=== PATIENT | female | born 1980 | race Hispanic/Latino ===

== ENCOUNTER 2022-10-29 09:15 | Emergency (ER) | payer OTHER, SELFPAY ==
[2022-10-29] VITALS (24 sets, daily range): BP systolic 133–193; BP diastolic 69–117; PULSE 67–91; RESP 16; TEMP 36.5; O2SAT 98–100; BMI 27.4
--- NOTE | 2022-10-29 09:18 | ED.GENADULT ---
HPI - General Adult <Yonatan Hong DO - Last Filed: 10/30/22 07:17> General Chief complaint: Back Pain/Injury Stated complaint: stiff neck and shoulders Time Seen by Provider: 10/29/22 09:18 History of Present Illness HPI narrative: 42-year-old female former smoker with history of diabetes and chronic migraines presents with a chief complaint of stiff neck and shoulders. She states she is been having this trouble for quite some time and has been taking [id number] Tylenol, anti-inflammatories and a prescription of tizanidine which does not seem to be helping. She denies any trauma or injury. She is had no fever or chills and takes no blood thinners. She denies any headaches, blurred vision or trouble with speech. She states that she does occasionally get numbness and tingling in her left hand and feels like it is heavy, not currently. She states that her pain is worse when she moves her head [address] or the other. She denies any midline pain. She has no chest pain or shortness of breath. She denies any sore throat or difficulty swallowing. Related Data Home Medications Medication Instructions Recorded Confirmed hydroxyzine HCl 25 mg tablet 25 mg PO DAILY 03/04/19 03/04/19 metformin 1,000 mg tablet 750 mg PO DAILY 03/04/19 03/04/19 paroxetine HCl 10 mg tablet 10 mg PO DAILY 03/04/19 03/04/19 paroxetine HCl 40 mg tablet 40 mg PO DAILY 03/04/19 03/04/19 rizatriptan 5 mg tablet 5 mg PO ONCE 03/04/19 03/04/19 telmisartan 80 1 tab PO DAILY 03/04/19 03/04/19 mg-hydrochlorothiazide 25 mg tablet (Micardis HCT) Previous Rx's Medication Instructions Recorded rizatriptan 10 mg tablet (Maxalt) See Rx Instructions PO .COMPLEX 04/09/19 #10 tabs galcanezumab-gnlm 120 mg/mL 240 mg (2 mL) SUBCUT ONCE #1 mL 04/23/19 subcutaneous syringe (Emgality) verapamil 120 mg tablet,extended 120 mg PO DAILY #90 tabs 09/13/19 release gabapentin 300 mg capsule 300 mg PO BEDTIME #14 caps 10/29/22 hydrocodone 5 mg-acetaminophen 325 1 tab PO Q4-6H PRN pain #10 tabs 10/29/22 mg tablet methylprednisolone 4 mg tablets in See Rx Instructions PO .COMPLEX 10/29/22 a dose pack (Medrol (Arslan)) #21 ea Allergies Allergy/AdvReac Type Severity Reaction Status Date / Time No Known Drug Allergies Allergy Verified 10/29/22 09:35 Review of Systems <Yonatan Hong DO - Last Filed: 10/30/22 07:17> Review of Systems Narrative: GENERAL: Denies chills, fatigue, malaise, fever, sweats. HEENT: Denies sinus pain, ear pain, sore throat, difficulty swallowing, dizziness. RESPIRATORY: Denies dyspnea, cough, wheezing, hemoptysis, sputum. CARDIOVASCULAR: Denies chest pain, palpitations, orthopnea, edema, GASTROINTESTINAL: Denies nausea, vomiting, abdominal pain, diarrhea, constipation, melena. : Denies dysuria, frequency, incontinence, hematuria, urinary retention. MUSCULOSKELETAL: See HPI SKIN: Denies rash, skin lesions, or other NEUROLOGIC: See HPI PSYCHIATRIC: No concerning psychosocial issues. 12 point review of systems is negative except for those stated above Patient History <Yonatan Hong DO - Last Filed: 10/30/22 07:17> Surgical History History of History of cholecystectomy History of hysterectomy History of lithotripsy Family History Father Developmental delay Diabetes mellitus Respiratory disease Mother Hypertension Mental disability Migraines Social History marital status: Smoking Status: Former smoker alcohol intake: current Smoking Status: Former smoker Exam <Yonatan Hong DO - Last Filed: 10/30/22 07:17> Narrative Exam Narrative: GENERAL: [42] year old patient appears stated age. Well-developed patient, tearful, obviously uncomfortable HEAD: Atraumatic. Normocephalic. EYES: Pupils equal round and reactive. Extraocular motions intact. No scleral icterus. No injection or drainage. ENT: Nose without bleeding, purulent drainage. Throat without erythema, tonsillar hypertrophy or exudate. Airway patent. NECK: Trachea midline. No midline bony tenderness, step-offs or crepitance, no change in symptoms with axial load. No measurable upper extremity numbness, tingling or weakness. She does have pain in the paraspinal musculature with palpation or attempts at active range of motion CARDIOVASCULAR: Regular rate and rhythm without murmurs, gallops, or rubs. RESPIRATORY: Clear to auscultation. Breath sounds equal bilaterally. No wheezes, rales, or rhonchi. GASTROINTESTINAL: Abdomen soft, non-tender, nondistended. EXTREMITIES: No edema or joint tenderness. BACK: Nontender without deformity or crepitance. No flank tenderness. NEURO: AOx3. SKIN: No rash or erythema of visible areas Initial Vital Signs Initial Vital Signs: Vital Signs Pulse Rate 74 10/29/22 09:28 Blood Pressure 183/97 H 10/29/22 09:28 Pulse Oximetry 98 10/29/22 09:28 <Oziel Freeman DO - Last Filed: 10/29/22 19:39> Initial Vital Signs Initial Vital Signs: Vital Signs Pulse Rate 74 10/29/22 09:28 Blood Pressure 183/97 H 10/29/22 09:28 Pulse Oximetry 98 10/29/22 09:28 Course <Yonatan Hong, DO - Last Filed: 10/30/22 07:17> Orders Ordered: Discontinued Medications Hydrocodone Bitart/Acetaminophen (Hydrocodone/Acet 5/325 Tablet) 1 tab PO NOW ONE Stop: 10/29/22 12:10 Last Admin: 10/29/22 12:21 Dose: 1 tab Documented By: AT Hydrocodone Bitart/Acetaminophen (Hydrocodone/Acet 5/325 Prepack) 1 bottle [facility] ONE Stop: 10/29/22 19:22 Last Admin: 10/29/22 19:27 Dose: 1 bottle Documented By: SB Diazepam (Diazepam 2 Mg Tablet) 2 mg PO NOW ONE Stop: 10/29/22 09:36 Last Admin: 10/29/22 09:41 Dose: 2 mg Documented By: AT Diazepam (Diazepam 2 Mg Tablet) 2 mg PO NOW ONE Stop: 10/29/22 14:10 Last Admin: 10/29/22 14:13 Dose: 2 mg Documented By: RB Gabapentin (Gabapentin 300 Mg Capsule) 300 mg PO NOW ONE Stop: 10/29/22 19:14 Last Admin: 10/29/22 19:23 Dose: 300 mg Documented By: SB Ketorolac Tromethamine (Ketorolac 30 Mg/Ml Vial) 30 mg IM NOW ONE Stop: 10/29/22 09:37 Last Admin: 10/29/22 09:41 Dose: 30 mg Documented By: AT Prednisone (Prednisone 20 Mg Tablet) 40 mg PO NOW ONE Stop: 10/29/22 19:14 Last Admin: 10/29/22 19:23 Dose: 40 mg Documented By: SB Consultations Consultation #1: Discussed MRI findings with on-call orthopedist, Dr. Rivera, he agrees there is no indication for neurosurgical intervention or immediate consultation, recommend symptomatic treatment, encouragement to follow with orthopedic office. Vital Signs Vital signs: Vital Signs - 8 hr 10/29/22 12:00 10/29/22 12:00 10/29/22 12:30 Pulse Rate 71 68 Blood Pressure 142/83 H Pulse Oximetry 100 100 Oxygen Delivery Method 10/29/22 13:00 10/29/22 13:00 10/29/22 13:30 Pulse Rate 73 80 Blood Pressure 145/80 H Pulse Oximetry 100 100 Oxygen Delivery Method Room Air 10/29/22 14:00 10/29/22 14:00 10/29/22 14:30 Pulse Rate 72 83 Blood Pressure 135/75 Pulse Oximetry 99 99 Oxygen Delivery Method 10/29/22 15:27 10/29/22 15:28 10/29/22 15:28 Pulse Rate 91 H 76 Blood Pressure 140/84 Pulse Oximetry 100 100 Oxygen Delivery Method 10/29/22 15:30 10/29/22 16:00 10/29/22 16:00 Pulse Rate 70 70 Blood Pressure 135/76 Pulse Oximetry 100 100 Oxygen Delivery Method 10/29/22 16:30 10/29/22 17:00 10/29/22 17:00 Pulse Rate 67 70 Blood Pressure 139/84 Pulse Oximetry 99 100 Oxygen Delivery Method 10/29/22 17:30 10/29/22 18:00 10/29/22 18:00 Pulse Rate 82 76 Blood Pressure 133/69 Pulse Oximetry 98 99 Oxygen Delivery Method 10/29/22 19:25 10/29/22 19:25 Pulse Rate 75 Blood Pressure 136/91 H Pulse Oximetry 99 Oxygen Delivery Method Room Air <Oziel Freeman DO - Last Filed: 10/29/22 19:39> Orders Ordered: Discontinued Medications Hydrocodone Bitart/Acetaminophen (Hydrocodone/Acet 5/325 Tablet) 1 tab PO NOW ONE Stop: 10/29/22 12:10 Last Admin: 10/29/22 12:21 Dose: 1 tab Documented By: AT Hydrocodone Bitart/Acetaminophen (Hydrocodone/Acet 5/325 Prepack) 1 bottle [facility] SEEINSTR ONE Stop: 10/29/22 19:22 Last Admin: 10/29/22 19:27 Dose: 1 bottle Documented By: SB Diazepam (Diazepam 2 Mg Tablet) 2 mg PO NOW ONE Stop: 10/29/22 09:36 Last Admin: 10/29/22 09:41 Dose: 2 mg Documented By: AT Diazepam (Diazepam 2 Mg Tablet) 2 mg PO NOW ONE Stop: 10/29/22 14:10 Last Admin: 10/29/22 14:13 Dose: 2 mg Documented By: RB Gabapentin (Gabapentin 300 Mg Capsule) 300 mg PO NOW ONE Stop: 10/29/22 19:14 Last Admin: 10/29/22 19:23 Dose: 300 mg Documented By: SB Ketorolac Tromethamine (Ketorolac 30 Mg/Ml Vial) 30 mg IM NOW ONE Stop: 10/29/22 09:37 Last Admin: 10/29/22 09:41 Dose: 30 mg Documented By: AT Prednisone (Prednisone 20 Mg Tablet) 40 mg PO NOW ONE Stop: 10/29/22 19:14 Last Admin: 10/29/22 19:23 Dose: 40 mg Documented By: SB Vital Signs Vital signs: Vital Signs - 8 hr 10/29/22 12:00 10/29/22 12:00 10/29/22 12:30 Pulse Rate 71 68 Blood Pressure 142/83 H Pulse Oximetry 100 100 Oxygen Delivery Method 10/29/22 13:00 10/29/22 13:00 10/29/22 13:30 Pulse Rate 73 80 Blood Pressure 145/80 H Pulse Oximetry 100 100 Oxygen Delivery Method Room Air 10/29/22 14:00 10/29/22 14:00 10/29/22 14:30 Pulse Rate 72 83 Blood Pressure 135/75 Pulse Oximetry 99 99 Oxygen Delivery Method 10/29/22 15:27 10/29/22 15:28 10/29/22 15:28 Pulse Rate 91 H 76 Blood Pressure 140/84 Pulse Oximetry 100 100 Oxygen Delivery Method 10/29/22 15:30 10/29/22 16:00 10/29/22 16:00 Pulse Rate 70 70 Blood Pressure 135/76 Pulse Oximetry 100 100 Oxygen Delivery Method 10/29/22 16:30 10/29/22 17:00 10/29/22 17:00 Pulse Rate 67 70 Blood Pressure 139/84 Pulse Oximetry 99 100 Oxygen Delivery Method 10/29/22 17:30 10/29/22 18:00 10/29/22 18:00 Pulse Rate 82 76 Blood Pressure 133/69 Pulse Oximetry 98 99 Oxygen Delivery Method 10/29/22 19:25 10/29/22 19:25 Pulse Rate 75 Blood Pressure 136/91 H Pulse Oximetry 99 Oxygen Delivery Method Room Air Medical Decision Making <Yonatan Hong, DO - Last Filed: 10/30/22 07:17> MDM Narrative Medical decision making narrative: CC: 42-year-old female with muscular neck pain Complicating co-morbidities: Hypertension, migraines, chronic neck pain Data collected from: Patient Medical records reviewed: Prior notes reviewed in our EMR Differential considered, but not limited to: Muscle spasm, radicular symptoms due to disc problem, much less likely meningitis versus other Exam documented above, pertinent findings include: No midline bony tenderness, crepitance, no change with axial load, no measurable upper extremity weakness. Negative Kernig's sign. A&O x3. Imaging studies independently reviewed: MRI notes disc involvement but no evidence of neurosurgical emergency Consultations: On-call orthopedist see details above Treatments: Valium, hydrocodone, gabapentin, steroids Re-evaluations: Improved symptoms, pain controlled Discussion: Patient with worsening neck pain in the absence of high-risk features such as fever, trauma, use of blood thinners or extremity weakness. Exam and history are very reassuring. MRI obtained given the report of occasional tingling in her left hand findings noted above. Patient did well with medications given, added opioids, steroids and gabapentin to her regimen, encouraged close follow-up with orthopedist Disposition: see below, along with detailed discharge instructions that have been reviewed with patient as well as indications for ED re-evaluation and additional outpatient follow up Discharge Plan Departure Patient Disposition: Home Clinical Impression: Cervical radiculopathy at C6 Instructions: DI for Cervical Radiculopathy Activity Restrictions/Additional Instructions: *You have been diagnosed with [neck pain with C6 disc protrusion] *What to do: *Please continue to take your regular medications as directed. [ x] New medication prescriptions sent to your pharmacy: [ [facility]] [ ] New medication written as a paper prescription [ ] No new medications given *Please follow Dr. Rivera at [facility], please see the contact info listed below. Call the office tomorrow, let them know you were seen in the emergency department and we would like you seen in follow-up *If you do not have a primary care provider please contact the [facility] Resource line at [phone]. They will ask some questions about your medical history and help get you set up with a doctor in the community. *Return to Emergency Department if you should have any new, worsening or concerning symptoms, such as [fever greater than 101 F, shaking chills, worsening pain, persistent vomiting or other bothersome symptoms] You have been prescribed a short course of narcotic medications. These are potentially dangerous and addictive medications that should be used carefully. While on these medications you cannot drive or operate heavy machinery. Additionally, you cannot sign legal documents or perform any duties such as this. Many people get constipated on narcotic medications so it would be advisable to discuss stool softeners with the pharmacist when you greens picker your prescription. Please understand that we cannot provide further refills of narcotics or controlled substances through the ED and your pain management will need to be through your Primary Care Provider Prescriptions: New hydrocodone-acetaminophen 5-325 mg tablet 1 tab PO Q4-6H PRN (Reason: pain) Qty: 10 0RF gabapentin 300 mg capsule 300 mg PO BEDTIME Qty: 14 0RF methylprednisolone [Medrol (Arslan)] 4 mg tablets,dose pack See Rx Instructions .ROUTE .COMPLEX Qty: 21 0RF Rx Instructions: orally per package directions No Action rizatriptan [Maxalt] 10 mg tablet See Rx Instructions PO .COMPLEX Qty: 10 2RF Dose Instruction: take 1 tab at onset of headache; if no relief may repeat 1 tab in 2hr; max = 3 tabs/day (24hr) PO Rx Instructions: take 1 tab at onset of headache; if no relief may repeat 1 tab in 2hr; max = 3 tabs/day (24hr) PO verapamil 120 mg tablet extended release 120 mg PO DAILY Qty: 90 1RF Rx Instructions: replaces micardis Emgality Syringe 120 mg/mL syringe 240 mg SUBCUT ONCE Qty: 1 12RF Rx Instructions: as a single dose; administer as two 120 mg injections at separate sites. then 1 per month. paroxetine HCl 10 mg tablet 10 mg PO DAILY metformin 1,000 mg tablet 750 mg PO DAILY hydroxyzine HCl 25 mg tablet 25 mg PO DAILY paroxetine HCl 40 mg tablet 40 mg PO DAILY rizatriptan 5 mg tablet 5 mg PO ONCE telmisartan-hydrochlorothiazid [Micardis HCT] 80-25 mg tablet 1 tab PO DAILY Referrals: Miscellaneous,DoctorMD [Non-Staff] - Hemanth Rivera MD [Physician] - Stand Alone Forms: Patient Portal/API <Oziel Freeman DO - Last Filed: 10/29/22 19:39> Sign Out Provider Sign Out Attestation: Dr freeman: This note is signed by myself for administrative purposes only. Because of the EMR my name was assigned to this patient inadvertently. I had no clinical interaction with this patient. I was not involved in her care during this emergency department visit.
--- NOTE | 2022-10-29 09:35 | DI.MRI.S_ITS ---
PROCEDURE: MR CERVICAL SPINE WO CON INDICATIONS: severe pain, radicular signs, ?disc on outside xray TECHNIQUE: Noncontrast sagittal T1 spin echo and T2 fast spin echo, sagittal STIR, foraminal oblique sagittal T2 fast spin echo, and axial gradient echo or T2 fast spin echo through the cervical spine. COMPARISON: None. FINDINGS: Image quality: Excellent. Alignment and Curvature: There is normal bony alignment. Straightening of the normal cervical lordosis Bone Marrow: Marrow demonstrates normal overall signal. Spinal Cord: Visualized spinal cord has normal size and signal. No cerebellar tonsillar herniation. Paraspinous Soft Tissues: No paravertebral masses. Prevertebral soft tissues are normal in thickness. C2-C3: Normal appearance. C3-C4: Normal appearance. C4-C5: Normal appearance. C5-C6: Normal appearance. C6-C7: Disc space narrowing and 3 mm central disc protrusion minimally indents the ventral surface of the cord. Facet hypertrophy results in moderate left foraminal stenosis. Right foramina is widely patent. Mild central stenosis C7-T1: Normal appearance. IMPRESSION: C6-7 central disc protrusion indents the ventral surface of the cord. Arthropathy results in moderate left foraminal stenosis. Approved by: Curt Cronin M.D. on 10/29/2022 at 17:57
[2022-10-29] MEDS: KETOROLAC 30 MG/ML VIAL IM (09:41)
[2022-10-29] MEDS: diazePAM 2 MG TABLET PO ×2 (09:41→14:13)
[2022-10-29] MEDS: HYDROCODONE/ACET 5/325 TABLET 1 TAB PO (12:21)
[2022-10-29] MEDS: GABAPENTIN 300 MG CAPSULE PO (19:23)
[2022-10-29] MEDS: predniSONE 20 MG TABLET 40 MG PO (19:23)
[2022-10-29] MEDS: HYDROCODONE/ACET 5/325 PREPACK 1 BOTTLE MISC (19:27)
== END 2022-10-29 19:32 | disposition home or self-care (01) ==
PROVIDERS: Emergency Provider Emergency Medicine; PCP Physician Assistant
DX: M54.12 Radiculopathy, cervical region (principal); I10 Essential (primary) hypertension
CPT/HCPCS: 72141; 96372; 99283; 99284; J1885

== ENCOUNTER 2023-08-04 11:44 | Emergency (ER) | payer OTHER, SELFPAY ==
[2023-08-04] VITALS (21 sets, daily range): BP systolic 165–222; BP diastolic 91–121; PULSE 78–115; RESP 16–27; TEMP 37.1; O2SAT 95–100; BMI 30.2
--- NOTE | 2023-08-04 12:04 | DI.RAD.S_ITS ---
PROCEDURE: XR CHEST 1V INDICATIONS: chest pain TECHNIQUE: One view of the chest was acquired. COMPARISON: None. FINDINGS: Surgical changes and devices: None. Lungs and pleura: Lungs are clear. No pleural effusions or pneumothorax. Mediastinum: Mediastinal contours appear normal. Heart size is normal. Bones and chest wall: No suspicious bony lesions. Overlying soft tissues appear unremarkable. IMPRESSION: No acute cardiopulmonary abnormality is seen. Dictated by: Kin Santamaria M.D. on 08/04/2023 at 13:08 Approved by: Kin Santamaria M.D. on 08/04/2023 at 13:08
--- NOTE | 2023-08-04 12:53 | PC.NURSE ---
Pt came to the emergency department today because she has been having increasing head and neck pain. Pt has hx of c6 degenerative disease and a bulging disk in her neck. Pt is currently being followed by the spine and pain clinic at [facility] and using medication for pain management to avoid having surgery. Pt reports that she has been experiencing high bp and head/neck pain since [facility] where they sent her to the ED due to high bp. Pt was sent home from ED on medication for HTN and instructed to follow up with her PCP for HTN management. Today, pt states that she is having neck pain at the base of her skull and that it radiates up to the top of her head with floater. reports nausea, but no vomiting. denies cp. A&Ox4. Pt is currently hypertensive 208/95. HR 88.
--- NOTE | 2023-08-04 12:58 | ED_ITS ---
HPI - General Adult General Chief complaint: Hypertension Stated complaint: high bp, neck pain Time Seen by Provider: 08/04/23 12:30 Source: patient and family Mode of arrival: Ambulatory History of Present Illness HPI narrative: 40-year-old female with a history of hypertension and migraine presenting with concerns about elevated pressure headache and general weakness. She reports she has had some mild intermittent chest pain today not short of breath and not vomiting. Takes lisinopril and hydrochlorothiazide for her blood pressure, primary is at [facility] says that she was out of her blood pressure medication times about 1 month and then recently restarted them. Related Data Home Medications Medication Instructions Recorded Confirmed metformin 1,000 mg tablet 750 mg PO DAILY 03/04/19 03/04/19 paroxetine HCl 10 mg tablet 10 mg PO DAILY 03/04/19 03/04/19 paroxetine HCl 40 mg tablet 40 mg PO DAILY 03/04/19 03/04/19 rizatriptan 5 mg tablet 5 mg PO ONCE 03/04/19 03/04/19 hydrochlorothiazide 25 mg tablet 25 mg PO DAILY 08/04/23 08/04/23 hydroxyzine pamoate 25 mg capsule 25 mg PO 3XD 08/04/23 08/04/23 lisinopril 10 mg tablet 10 mg PO DAILY 08/04/23 08/04/23 trazodone 50 mg tablet 50 - 100 mg PO ONCE PM insomnia 08/04/23 08/04/23 Previous Rx's Medication Instructions Recorded rizatriptan 10 mg tablet (Maxalt) See Rx Instructions PO .COMPLEX 04/09/19 #10 tabs galcanezumab-gnlm 120 mg/mL 240 mg (2 mL) SUBCUT ONCE #1 mL 04/23/19 subcutaneous syringe (Emgality) gabapentin 300 mg capsule 300 mg PO BEDTIME #14 caps 10/29/22 lisinopril 20 mg tablet 20 mg PO DAILY #20 tabs 08/04/23 Allergies Allergy/AdvReac Type Severity Reaction Status Date / Time No Known Drug Allergies Allergy Verified 08/04/23 11:53 Patient History Surgical History History of lithotripsy History of cholecystectomy History of hysterectomy History of Family History Father Developmental delay Diabetes mellitus Respiratory disease Mother Hypertension Mental disability Migraines Social History marital status: Smoking Status: Former smoker alcohol intake: current Smoking Status: Former smoker alcohol intake frequency: 0-2 drinks per day Substance Use Type: does not use Exam Narrative Exam Narrative: Alert, no acute distress HEENT: Normocephalic, atraumaitic moist mucus membranes Neck: Supple no midline tenderness no carotid bruit Lungs: Clear to ascultaion, no respiratory distress Heart: Regular rhythm and rate no murmur Abdomen: Normal bowel sounds, soft and nontender Extremeties: Full range of motion no deformity Neuro: Alert and oriented, normal speech moves x4. Reporting dizziness, she does not have nystagmus pupils are equal and reactive extraocular movements are intact normal coordination normal speech Initial Vital Signs Initial Vital Signs: Vital Signs Temperature 98.7 F 08/04/23 11:53 Pulse Rate 115 H 08/04/23 11:53 Respiratory Rate 18 08/04/23 11:53 Blood Pressure 215/117 H 08/04/23 11:53 Pulse Oximetry 100 08/04/23 11:53 Oxygen Delivery Method Room Air 08/04/23 11:53 Course Orders Ordered: Discontinued Medications Acetaminophen (Acetaminophen 325 Mg Tablet) 975 mg PO NOW ONE Stop: 08/04/23 14:11 Last Admin: 08/04/23 14:19 Dose: 975 mg Documented By: FAMILIA Lisinopril (Lisinopril 10 Mg Tablet) 10 mg PO NOW ONE Stop: 08/04/23 13:09 Last Admin: 08/04/23 13:28 Dose: 10 mg Documented By: FAMILIA Ondansetron HCl (Ondansetron 4 Mg/2 Ml Inj) 4 mg IV NOW ONE Stop: 08/04/23 14:59 Last Admin: 08/04/23 15:14 Dose: 4 mg Documented By: LATRICIA Vital Signs Vital signs: Vital Signs - 8 hr 08/04/23 11:53 08/04/23 12:12 08/04/23 12:15 Temperature 98.7 F Pulse Rate 115 H 100 H 102 H Respiratory Rate 18 23 18 Blood Pressure 215/117 H Pulse Oximetry 100 Oxygen Delivery Method Room Air 08/04/23 12:20 08/04/23 12:20 Temperature Pulse Rate 104 H Respiratory Rate 17 Blood Pressure 222/121 H Pulse Oximetry 96 Oxygen Delivery Method Room Air Medical Decision Making Lab Data Lab results narrative: Troponin and creatinine are normal, INR is normal 08/04/23 12:35 08/04/23 12:35 Labs: Lab Results 08/04/23 08/04/23 Range/Units 12:22 12:35 WBC 6.4 (4.5-11.0) X10^3/uL RBC 4.63 (4.0-5.2) X10^6/uL Hgb 14.2 (12.0-16.0) g/dL Hct 41.0 (36-46) % MCV 88.6 (80-100) fL MCH 30.7 (26-34) PG MCHC 34.7 (30-36) % RDW 13.2 (11.6-14.8) % Plt Count 181 (150-400) X10^3/uL Neut % (Auto) 70.6 (50-75) % Lymph % (Auto) 22.0 L (25-40) % [place] % (Auto) 5.8 (3-14) % Eos % (Auto) 0.8 L (2-4) % Baso % (Auto) 0.8 (0-2) % Neut # (Auto) 4500 (4877-5857) /uL Lymph # (Auto) 1400 (1069-1283) /uL [place] # (Auto) 400 (0-900) /uL Eos # (Auto) 0 (0-450) /uL Baso # (Auto) 0 (0-100) /uL Clumped Platelets 1 RBC Morphology Not Reportable PT 12.7 H (9.4-12.5) SECONDS INR 1.1 (0.9-1.3) APTT 23 L (25.1-36.5) SECONDS Sodium 136 L (137-145) mmol/L Potassium 3.8 (3.4-5.1) mmol/L Chloride 101 (98-107) mmol/L Carbon Dioxide 26 (22-32) mmol/L BUN 13 (7-17) mg/dL Creatinine 0.70 (0.52-1.04) mg/dL Estimated GFR > 60 (>60) mL/min BUN/Creatinine Ratio 18.6 (6-22) Glucose 108 H (70-100) mg/dL Calcium 9.8 (8.4-10.2) mg/dL Magnesium 2.2 (1.6-2.3) mg/dL Total Bilirubin 0.7 (0.2-1.3) mg/dL AST 22 (14-36) IU/L ALT 21 (<35) IU/L Alkaline Phosphatase 56 (38-126) U/L Troponin I 0.020 (0.01-0.034) ng/mL Total Protein 8.0 (6.3-8.2) g/dL Albumin 4.6 (3.5-5.0) g/dL Globulin 3.4 (1.7-4.1) g/dL Albumin/Globulin Ratio 1.4 (1.0-2.8) Lipase 84 (23-300) U/L Urine RBC 0-1/hpf (0-5/HPF) Urine WBC None seen (0-5/HPF) Ur Squamous Epith Cells 0-1 /hpf (0-5/HPF) Urine Bacteria None seen (None) Ur Culture Indicated? Cult not indicated Point of Care Testing Test Results Negative Urine Dip Bedside Urine Glucose Negative Bedside Urine Bilirubin - Negative Bedside Urine Ketone - Negative Urine Specific [place] 1.005 Bedside Urine Occult Blood +/- Bedside Urine pH 7.5 Bedside Urine Protein - Negative Bedside Urine Urobilinogen - Negative Bedside Urine Nitrite - Negative Bedside Urine Leukocytes - Negative Esterase Point of care testing: Point of Care Testing Test Results Negative Urine Dip Bedside Urine Glucose Negative Bedside Urine Bilirubin - Negative Bedside Urine Ketone - Negative Urine Specific [place] 1.005 Bedside Urine Occult Blood +/- Bedside Urine pH 7.5 Bedside Urine Protein - Negative Bedside Urine Urobilinogen - Negative Bedside Urine Nitrite - Negative Bedside Urine Leukocytes - Negative Esterase Imaging Data CT scan - head: My Impression: No acute findings on CT head Chest x-ray: My Impression: No acute findings on chest x-ray ECG Data Interpretation: Normal sinus rhythm at [address] segment changes no chamber hypertrophy no previous infarction MDM Narrative Medical decision making narrative: 43-year-old female with a history of hypertension, presenting today with neck pain lightheadedness and elevated blood pressure. Considered ischemic heart disease, CVA, hypertensive urgency. Blood pressure came down into a normal range with rest, I did double her lisinopril from 10 mg to 20 mg. Workup was negative for evidence of ischemia, hemorrhage or stroke. Discharge Plan Departure Patient Disposition: Home Clinical Impression: Hypertension Qualifiers: Hypertension type: primary hypertension Qualified Code(s): I10 - Essential (primary) hypertension Headache Qualifiers: Headache type: unspecified Headache chronicity pattern: acute headache I ntractability: not intractable Qualified Code(s): R51.9 - Headache, unspecified Instructions: DI for High Blood Pressure Activity Restrictions/Additional Instructions: Emergency department evaluation today is reassuring. I think it is safe for you to go home. I do recommend that you increase your lisinopril from 10 mg a day to 20 mg a day. Follow up as soon as possible with your primary care provider to re-evaluate this change. Continue your other previous home medications, get adequate fluids and rest. Although we have made every effort to ensure that you are safe for discharge, if your symptoms are getting worse, or if you are having other acute symptoms such as chest pain shortness of breath high fevers, abdominal pain or uncontrolled vomiting recheck in the emergency department. Prescriptions: New lisinopril 20 mg tablet 20 mg PO DAILY Qty: 20 0RF No Action rizatriptan [Maxalt] 10 mg tablet See Rx Instructions PO .COMPLEX Qty: 10 2RF Dose Instruction: take 1 tab at onset of headache; if no relief may repeat 1 tab in 2hr; max = 3 tabs/day (24hr) PO Rx Instructions: take 1 tab at onset of headache; if no relief may repeat 1 tab in 2hr; max = 3 tabs/day (24hr) PO trazodone 50 mg tablet 50 - 100 mg PO ONCE PM lisinopril 10 mg tablet 10 mg PO DAILY hydrochlorothiazide 25 mg tablet 25 mg PO DAILY hydroxyzine pamoate 25 mg capsule 25 mg PO 3XD gabapentin 300 mg capsule 300 mg PO BEDTIME Qty: 14 0RF Emgality Syringe 120 mg/mL syringe 240 mg SUBCUT ONCE Qty: 1 12RF Rx Instructions: as a single dose; administer as two 120 mg injections at separate sites. then 1 per month. paroxetine HCl 10 mg tablet 10 mg PO DAILY metformin 1,000 mg tablet 750 mg PO DAILY paroxetine HCl 40 mg tablet 40 mg PO DAILY rizatriptan 5 mg tablet 5 mg PO ONCE Referrals: Jessie Sena PA-C [Primary Care Provider] - Stand Alone Forms: Patient Portal/API
[2023-08-04 12:59] LABS: Basophils Absolute Auto 0 /uL (0-100); Basophils Percent Auto 0.8 % (0-2); Eosinophils Absolute Auto 0 /uL (0-450); Eosinophils Percent Auto 0.8 % (2-4); Hemoglobin 14.2 g/dL (12.0-16.0); INR 1.1 (0.9-1.3); Lymphocytes Absolute Auto 1400 /uL (1100-4500); Mean Corpuscular HGB Conc 34.7 % (30-36); Mean Corpuscular Hemoglobin 30.7 PG (26-34); Mean Corpuscular Volume 88.6 fL (80-100); Monocytes Absolute Auto 400 /uL (0-900); Monocytes Percent Auto 5.8 % (3-14); Neutrophils Absolute Auto 4500 /uL (1500-7000); Prothrombin Time 12.7 SECONDS (9.4-12.5); Red Blood Cell Count 4.63 X10^6/uL (4.0-5.2); Red Cell Distribution Width 13.2 % (11.6-14.8); White Blood Cell Count 6.4 X10^3/uL (4.5-11.0)
[2023-08-04 13:01] LABS: PTT Partial Thromboplastin Tim 23 SECONDS (25.1-36.5)
[2023-08-04 13:03] LABS: RBC Urine 0-1/HPF (0-5/HPF)
[2023-08-04 13:03] LABS: Alanine Aminotransferase 21 IU/L (<35); Albumin 4.6 g/dL (3.5-5.0); Albumin Globulin Ratio 1.4 (1.0-2.8); Alkaline Phosphatase 56 U/L (38-126); Aspartate Aminotransferase 22 IU/L (14-36); BUN Creatinine Ratio 18.6 (6-22); Bilirubin Total 0.7 mg/dL (0.2-1.3); Blood Urea Nitrogen 13 mg/dL (7-17); Calcium 9.8 mg/dL (8.4-10.2); Carbon Dioxide 26 mmol/L (22-32); Chloride 101 mmol/L (98-107); Estimated Glomerular Filt Rate > 60 mL/min (>60); Globulin 3.4 g/dL (1.7-4.1); Glucose 108 mg/dL (70-100); HEMOLYSIS 24 (0-50); Lipase 84 U/L (23-300); Magnesium 2.2 mg/dL (1.6-2.3); Potassium 3.8 mmol/L (3.4-5.1); Sodium 136 mmol/L (137-145)
[2023-08-04 13:04] LABS: Bacteria Urine None Seen; Culture Indicated Urine Cult Not Indicated; Squamous Epithelial Cell Urine 0-1 /HPF (0-5/HPF); WBC Urine None Seen (0-5/HPF)
[2023-08-04 13:05] LABS: Add Manual Diff / Slide Review SLIDE REVIEW; Neutrophils Percent Auto 70.6 % (50-75)
--- NOTE | 2023-08-04 13:05 | DI.CT.S_ITS ---
PROCEDURE: CT HEAD/BRAIN WO CON INDICATIONS: headache htn TECHNIQUE: Noncontrast 4.5 mm thick angled axial sections acquired from the foramen magnum to the vertex, with coronal and sagittal reformats. For radiation dose reduction, the following was used: automated exposure control, adjustment of mA and/or kV according to patient size. COMPARISON: None. FINDINGS: Image quality: Diagnostic. CSF spaces: Basal cisterns are patent. No extra-axial fluid collections. Ventricles are normal in size and shape. Brain: No midline shift. No intracranial masses or hemorrhage. Reynolds-white matter interface is normal. Skull and face: Calvarium and visualized facial bones are intact, without suspicious lesions. Sinuses: Visualized sinuses and mastoids are clear. IMPRESSION: No acute intracranial pathology. Dictated by: Marly Schafer MD, PhD on 08/04/2023 at 13:34 Approved by: Marly Schafer MD, PhD on 08/04/2023 at 13:35
[2023-08-04 13:10] LABS: Platelet Count 181 X10^3/uL (150-400)
[2023-08-04 13:15] LABS: Platelet Clumps 1
[2023-08-04] MEDS: lisinopriL 10 MG TABLET PO (13:28)
[2023-08-04] MEDS: ACETAMINOPHEN 325 MG TABLET 975 MG PO (14:19)
[2023-08-04] MEDS: ONDANSETRON 4 MG/2 ML INJ IV (15:14)
== END 2023-08-04 15:26 | disposition home or self-care (01) ==
PROVIDERS: Emergency Provider Emergency Medicine; PCP Physician Assistant
DX: I10 Essential (primary) hypertension (principal); R51.9 Headache, unspecified; Z79.899 Other long term (current) drug therapy
CPT/HCPCS: 36415; 70450; 71045; 80053; 81003; 81015; 81025; 83690; 83735; 84484; 85025; 85610; 85730; 93005; 93010; 96374; 99284; 99285; J2405

== ENCOUNTER → 2024-01-16 07:01 | Outpatient (CLI) | payer OTHER, SELFPAY ==
--- NOTE | 2024-01-16 07:03 | DI.CT.S_ITS ---
PROCEDURE: CT CERVICAL SPINE WO CON INDICATIONS: Radiculopathy, cervical region TECHNIQUE: Noncontrast 3 mm thick sections acquired from the skull base to the T4 level. Sagittal and coronal reformats were then constructed. For radiation dose reduction, the following was used: automated exposure control, adjustment of mA and/or kV according to patient size. COMPARISON: [facility], MR, MR CERVICAL SPINE WITHOUT CONTRAST, 11/26/2023, 19:23. FINDINGS: Image quality: Excellent. Bones: No acute fractures or dislocations. Visualized superior ribs are intact. Straightening of the normal cervical lordosis may be related to positioning. Very mild degenerative endplate changes are seen most notably is C6-7. Minimal facet hypertrophy. Soft tissues: Prevertebral soft tissues are normal in thickness. No paravertebral hematomas. No apical pneumothoraces. Thecal sac contents are better evaluated on the prior cervical spine MRI. IMPRESSION: 1. Exam performed for pre-surgical planning. 2. Minimal multilevel spondylosis, overall better evaluated on the prior MRI from 11/26/2023. Findings do not appear significantly changed given differences in modality. 3. No displaced fracture or traumatic subluxation. Approved by: Awais Irvin M.D. on 01/16/2024 at 10:21
== END ==
LOC: CT 07:02
PROVIDERS: PCP Physician Assistant; Referring Provider Orthopaedic Surgery Orthopaedic Surgery of the Spine; Visit Provider Orthopaedic Surgery Orthopaedic Surgery of the Spine
DX: M54.12 Radiculopathy, cervical region (principal)
CPT/HCPCS: 72125

== ENCOUNTER → 2024-06-30 07:48 | Outpatient (CLI) | payer OTHER, SELFPAY ==
--- NOTE | 2024-06-30 | DI.CT.S_ITS ---
PROCEDURE: CT KIDNEY URETER BLADDER (KUB) INDICATIONS: abdominal pain, history or urinary calculi TECHNIQUE: Axial sections were acquired from the lung bases to the pubic symphysis. Coronal and sagittal reformats were performed. For radiation dose reduction, the following was used: automated exposure control, adjustment of mA and/or kV according to patient size. COMPARISON: None. FINDINGS: Image quality: Diagnostic. Lower Chest: No significant findings. URINARY: Right Kidney: No obstructing stones or hydronephrosis. A few small nonobstructing right renal stones are noted, the largest measuring 5 mm at the inferior pole with Hounsfield units measuring 452. Right Ureter: No hydroureter. Left Kidney: No obstructing stones or hydronephrosis. A few small nonobstructing left renal stones are noted, the largest measuring 5 mm at the inferior pole with Hounsfield units measuring 954. Left Ureter: No hydroureter. Bladder: Normal wall thickness. No stones. ABDOMEN: Liver: No contour-deforming solid mass. Gallbladder: Surgically absent. Biliary ducts: No biliary dilation. Pancreas: No ductal dilation. Spleen: Size is within normal limits. Adrenal Glands: No adrenal nodules. Stomach and Bowel: Normal colonic caliber, without significant wall thickening. The stomach and small bowel appear normal. Peritoneum: No abnormal intraperitoneal fluid. No free air. Ventral Wall: No hernia. Abdominal Nodes: No enlarged retroperitoneal or mesenteric lymph nodes. Vessels: Aorta and inferior vena cava are normal in size. PELVIS: Pelvic Organs: Unremarkable. Pelvic Nodes: Unremarkable. Miscellaneous: No inguinal hernias are seen. Bones: Unremarkable. IMPRESSION: 1. A few bilateral nonobstructing renal stones are noted measuring up to 5 mm each at the inferior poles. 2. No obstructing stones or hydronephrosis. Dictated by: Delgado Sanchez M.D. on 06/30/2024 at 11:14 Approved by: Delgado Sanchez M.D. on 06/30/2024 at 11:21
== END ==
PROVIDERS: PCP Nurse Practitioner Family; Referring Provider Nurse Practitioner Family; Visit Provider Nurse Practitioner Family
DX: N20.0 Calculus of kidney (principal); R10.9 Unspecified abdominal pain; R35.0 Frequency of micturition; Z87.442 Personal history of urinary calculi; Z90.49 Acquired absence of other specified parts of digestive tract
CPT/HCPCS: 74176